=== PATIENT | male | born 1955 | race Caucasian/White ===

== ENCOUNTER 2021-09-23 06:06 | Day surgery (SDC) | payer MEDICARE, MEDICAID, SELFPAY ==
[2021-09-20 09:52] VITALS: BMI 28.5
[2021-09-23] VITALS (8 sets, daily range): BP systolic 121–160; BP diastolic 68–88; PULSE 63–98; RESP 12–16; TEMP 35.8–37.1; O2SAT 93–99; BMI 28.5
[2021-09-23] MEDS: LACTATED RINGERS 1,000 ML 84 ML IV (06:45)
[2021-09-23 07:31] LABS: COVID19 -Nasal RAPID Negative (Negative)
--- NOTE | 2021-09-23 07:41 | SUR.OPER ---
Supine on padded OR bed, head on pillow, arms padded and tucked at sides, legs uncrossed, safety belt at thigh, tape over blanket over lower legs .
--- NOTE | 2021-09-23 07:47 | PM.PREOP ---
Pre-operative Note COVID-19 COVID-19 status: Negative Result date/Date tested (Pos, Neg/Pending): 09/22/21 Criteria for continued procedure: Expected advancement of disease process, Possibility delay results in more complex future surgery or treatment, Increased loss of function, Continuing or worsening of significant or severe pain, Deterioration of the patient's condition or overall health and Delay expected to result in less-positive ultimate med/surg outcome Interval Note History & Physical reviewed/Exam performed by Physician: Yes Changes to H&P: No
[2021-09-23] MEDS: CEFAZOLIN 2 GM/20 ML SYRINGE IV (08:15)
[2021-09-23] MEDS: BUPIVACAINE 0.25% W/ EPI 30 ML VIAL INJ (08:24)
--- NOTE | 2021-09-23 09:49 | DI.RAD.S_ITS ---
PROCEDURE: XR CERVICAL SPINE 2V OR 3V INDICATIONS: C4-5 ACDF... TECHNIQUE: 2 fluoroscopic view(s) of the cervical spine were acquired. COMPARISON: [facility] Outside Film, MR, MR CERVICAL SPINE WITHOUT CONTRAST, 08/13/2021, 13:20. FINDINGS: ACDF at C4-C5 with intervertebral body spacer. Endotracheal tube. IMPRESSION: Intraoperative guidance provided. Dictated by: Alen Wang M.D. on 09/23/2021 at 12:45 Approved by: Alen Wang M.D. on 09/23/2021 at 12:46
--- NOTE | 2021-09-23 09:58 | PM.OP.1 ---
Operative Date/Time/Diagnoses Date of procedure: 09/23/21 Time of procedure: 07:45 Pre-op diagnosis: 1. C4-5 spinal stenosis with myelopathy 2. C4-5 spondylolisthesis Post-op diagnosis: same Procedure & Clinicians Procedure: 1. C4-5 anterior cervical diskectomy and fusion 2. C4-5 anterior interbody cage placement 3. C4-5 anterior instrumentation with plate and screw placement in C5 and C6 vertebrae 4. Utilization of microsurgical technique and operating microscope Same procedure as scheduled: Yes Indications: Patient has been having chronic neck pain and worsening cervical radiculopathy and myelopathy. Patient failed multiple conservative management with worsening pain weakness and numbness in his upper extremity. Patient has been having difficulty performing activity of daily living. After discussing risks benefits of treatment options, patient elected proceed with surgery. Surgeon: Car Bal Laborer [employer]: Paige Lockett Click Yes if Unassisted: No Anesthesia Type: General Operative Notes Closure Type: primary Specimen(s): none sent Prosthetic devices, grafts, tissues, transplants, or devices: Globus Titanium interbody cage, Extend plate Estimated Blood Loss (mL): 5 Blood products transfused: none Procedure in detail: Patient was seen in the preoperative area. Risks and benefits of the surgery was discussed with the patient. Informed consent was obtained from the patient and placed in the chart. Surgical site was marked. Patient was taken to the operative room. General anesthesia was administered. Prophylactic antibiotic was given to the patient less than 30 min before the incision was made. Patient was placed into a supine position on a radiolucent table. Patient's shoulders were taped down to allow proper C-arm imaging. Anterior cervical area was prepped and draped in a sterile fashion. Time-out was performed at this time. Using lateral C-arm imaging, the level between C4 and C5 was identified and marked on patient's neck. A oblique incision from midline towards medial border of sternocleidomastoid muscle was made. The platysma muscle was incised in line with skin incision. Metzenbaum scissor was used to develop the plane between the medial border of sternocleidomastoid d and the strap muscles medially. The carotid sheath and its contents were identified and protected behind the hand-held retractor during the entire case. The plane between the carotid sheath and strap muscles was developed with Metzenbaum scissors. Dissection was made down to the level of the anterior cervical fascia. Longus colli muscle was incised on the anterior aspect of vertebral bodies bilaterally from C4-C5. Spinal needle was placed into the C4-5 disc space and confirmed with lateral C-arm imaging. Using microsurgical technique and operative microscope, anterior cervical diskectomy was performed at C4-5 level. This was done by removing the disc material, removing the anterior and posterior osteophytes posterior longitudinal ligaments along with performing bilateral foraminotomies at the C4-5 levels. Patient was found to have severe central and foraminal stenosis. Patient's stenosis was fully decompressed after decompression was completed. After the diskectomy was completed, an anterior interbody cage was obtained. The cage was packed with globus DBM bone grafting material. One Titanium cage along with the bone grafting material was then packed into the interbody space at C4-5 along with an anterior cervical plate. The cervical plate was stabilized to the C4-5 vertebrae using screws. After confirming placement of the hardware with AP and lateral C-arm imaging, the screws were locked into the plate using the locking mechanism and torque limiting screwdriver. After the hardware was placed and confirmed with AP and lateral C-arm imaging, the wound was irrigated with sterile normal saline. The platysma muscle and the subcutaneous tissue was closed with 2-0 Vicryl. The skin was closed with 4-0 Monocryl and Steri-Strips. Patient tolerated the procedure well. Patient was transferred recovery room in stable condition. There were no complications. Complications: none Post-operative Condition: stable Disposition: PACU Plan for aftercare: Discharge to home
[2021-09-23] MEDS: HYDROMORPHONE 2 MG INJ IV ×2 (10:18→10:26)
[2021-09-23] MEDS: OXYCODONE IR 5 MG TABLET PO (10:25)
[2021-09-23] MEDS: hydrOXYzine 50 MG/ML INJ IM (10:31)
--- NOTE | 2021-09-23 11:58 | SUR.PHASEII ---
Discharge instructions reviewed with pt and his . both verbalized understanding.
== END 2021-09-23 11:59 | disposition home or self-care (01) ==
PROVIDERS: Referring Provider Orthopaedic Surgery Orthopaedic Surgery of the Spine; Visit Provider Orthopaedic Surgery Orthopaedic Surgery of the Spine
PROC: (CPT 22551; principal; 2021-09-23 07:45)
DX: M48.02 Spinal stenosis, cervical region (principal); M47.12 Other spondylosis with myelopathy, cervical region; M54.12 Radiculopathy, cervical region; G25.81 Restless legs syndrome
CPT/HCPCS: 22551; 22853; 72040; 76000; 87635; C1713; J0690; J1100; J1170; J2250; J2405; J2704; J3010; J3410